=== PATIENT | male | born 1955 | race Caucasian/White ===

== ENCOUNTER → 2017-10-13 | Outpatient (CLI) | payer OTHER ==
--- NOTE | 2017-10-13 12:00 | RADIOLOGY REPORT (SQ) ---
EXAM DESCRIPTION: KNEE RIGHT 4 VIEWS COMPLETED DATE/TIME: 10/13/2017 11:34 am REASON FOR STUDY: R KNEE MASS COMPARISON: None. NUMBER OF VIEWS: Four views. TECHNIQUE: AP, lateral, and both oblique radiographic images acquired of the right knee. LIMITATIONS: None. FINDINGS: MINERALIZATION: Normal. BONES: No acute fracture or dislocation. No worrisome bone lesions. JOINT: Trace suprapatellar knee joint effusion. SOFT TISSUES: Focal soft tissue swelling just ventral to the anterior tibial tubercle along the dista l aspect of patellar tendon. No radio-opaque foreign body. OTHER: No other significant finding. IMPRESSION: Trace joint effusion Focal soft tissue swelling along the anterior right knee, along the distal patellar tendon near the a nterior tibial tubercle. No radiopaque foreign body. No soft tissue gas. TECHNICAL DOCUMENTATION: JOB ID: [id number] [employer]- All Rights Reserved
== END ==
LOC: RAD 10:54
PROVIDERS: ATTEND Family Medicine
DX: M25.40 Effusion, unspecified joint (principal)

== ENCOUNTER 2017-11-24 23:41 | Emergency (ER) | payer OTHER ==
[2017-11-25] MEDS ORDERED: METOPROLOL TARTRATE 25 MG TABLET PO ONE (00:39)
[2017-11-25] MEDS ORDERED: HYDROCHLOROTHIAZIDE 25 MG TABLET PO ONE (00:40)
[2017-11-25] MEDS ORDERED: CYANOCOBALAMIN (VITAMIN B-12) 1,000 MCG TABLET PO SCH ×2 (00:45→22:00)
[2017-11-25] MEDS ORDERED: CARBIDOPA/LEVODOPA ER 50-200 MG TABLET.SA PO SCH ×2 (00:45→18:00)
--- NOTE | 2017-11-25 00:51 | ER Document Report ---
ED General - General TRAVEL OUTSIDE OF THE [place] IN LAST 30 DAYS: No <JULISSA GERBER - Last Filed: 11/25/17 05:59> <JET JENNINGS - Last Filed: 11/26/17 14:03> <KAYLA CARVER - Last Filed: 11/26/17 14:35> - General Chief Complaint: Psych Problem Stated Complaint: PSYCH EVAL Time Seen by Provider: 11/25/17 00:22 Notes: Patient is a 62-year-old male presents with complaint of suicidal ideations. Patient currently says is not suicidal; however, patient has a history of Parkinson's disease, did take his medications today, had a gun in his lap and texted to a friend "my gun is in my lap and the pain will end soon". Police were called and went to his house. Patient says was told that she had to come to the ER. When he arrived the police that he was voluntary. Patient tells me that he wants to leave and that he is not suicidal. I informed him that he needs to be evaluated by psychiatry before leaving based on the text that he sent. Informed patient that if he is not willing to stay that he will be involuntarily committed. Patient agrees to stay and speak with psychiatry. Patient does admit to not taking his medications. He does not remember the exact dosages of his medications. He says medications have not changed in the last year. We do have occasional list from his last visit he does recognize names of medications. Denies recent fevers or infections. He has no other complaints at this time. (JULISSA GERBER) - Related Data Allergies/Adverse Reactions: No Known Allergies Allergy (Verified 09/24/16 16:16) Past Medical History - Social History Smoking Status: Current Every Day Smoker Frequency of alcohol use: None Drug Abuse: None Family History: Reviewed & Not Pertinent, CAD, Malignancy - Past Medical History Cardiac Medical History: Reports: Hx Hypertension Denies: Hx Congestive Heart Failure, Hx DVT, Hx Heart Attack, Hx Hypercholesterolemia, Hx Pulmonary Embolism Pulmonary Medical History: Reports: Hx Pneumonia Denies: Hx Asthma, Hx Bronchitis, Hx COPD, Hx Tuberculosis Neurological Medical History: Denies: Hx Seizures Endocrine Medical History: Denies: Hx Diabetes Mellitus Type 1, Hx Diabetes Mellitus Type 2, Hx Hyperthyroidism, Hx Hypothyroidism Renal/ Medical History: Denies: Hx Benign Prostatic Hyperplasia, Hx End Stage Renal Disease, Hx Kidney Stones GI Medical History: Denies: Hx Cirrhosis, Hx Gastroesophageal Reflux Disease, Hx Hepatitis, Hx Ulcer Musculoskeltal Medical History: Reports Hx Arthritis, Denies Hx Multiple Sclerosis Psychiatric Medical History: Denies: Hx Bipolar Disorder, Hx Depression, Hx Schizophrenia Infectious Medical History: Denies: Hx Hepatitis - Immunizations Hx Diphtheria, Pertussis, Tetanus Vaccination: Yes <JULISSA GERBER - Last Filed: 11/25/17 05:59> Review of Systems <JULISSA GERBER - Last Filed: 11/25/17 05:59> <JET JENNINGS - Last Filed: 11/26/17 14:03> <KAYLA CARVER - Last Filed: 11/26/17 14:35> - Review of Systems Notes: My Normal Review Basic REVIEW OF SYSTEMS: CONSTITUTIONAL : Denies fever, chills, or sweats. Denies recent illness. EENT: Denies eye, ear, throat, or mouth pain or symptoms. Denies nasal or sinus congestion. RESPIRATORY: Denies cough, cold, or chest congestion. Denies shortness of breath, difficulty breathing, or wheezing. GASTROINTESTINAL: Denies abdominal pain. Denies nausea, vomiting, or diarrhea. Denies constipation. Last BM: MUSCULOSKELETAL: Denies neck or back pain or joint pain or swelling. SKIN: Denies rash or skin lesions. NEUROLOGICAL: Denies altered mental status or loss of consciousness. Denies headache. Denies weakness or paralysis or loss of use of either side. Denies problems with gait or speech. Denies sensory or motor loss. Psychiatry: Depression. Made a suicidal threat. ALL OTHER SYSTEMS REVIEWED AND NEGATIVE. (JULISSA GERBER) Physical Exam <JULISSA GERBER - Last Filed: 11/25/17 05:59> <JET JENNINGS - Last Filed: 11/26/17 14:03> <KAYLA CARVER - Last Filed: 11/26/17 14:35> - Vital signs Vitals: Temp Pulse Resp BP Pulse Ox 98.1 F 94 20 170/100 H 94 11/24/17 23:42 11/24/17 23:42 11/24/17 23:42 11/24/17 23:42 11/24/17 23:42 - Notes Notes: General Appearance: Well nourished, alert, cooperative, no acute distress, no obvious discomfort. Vitals: reviewed, See vital signs table. Head: no swelling or tenderness to the head Eyes: PERRL, EOMI, Conjuctiva clear Mouth: No decreasd moisture Lungs: No wheezing, No rales, No rhonci, No accessory muscle use, good air exchange bilaterally. Heart: Normal rate, Regular rythm, No murmur, no rub Abdomen: Normal BS, soft, No rigidity, No abdominal tenderness, No guarding, no rebound, no abdominal masses, no organomegaly Extremities: strength 5/5 in all extremities, good pulses in all extremities, no swelling or tenderness in the extremities, no edema. Skin: warm, dry, appropriate color, no rash Neuro: speech clear, oriented x 3, normal affect, responds appropriately to questions. Has a resting tremor consistent with his Parkinson's disease. ( JULISSA GERBER) Course - Laboratory Result Diagrams: 11/25/17 00:55 11/25/17 00:55 <JULISSA GERBER - Last Filed: 11/25/17 05:59> - Laboratory Result Diagrams: 11/25/17 00:55 11/25/17 00:55 <JET JENNINGS - Last Filed: 11/26/17 14:03> - Laboratory Result Diagrams: 11/25/17 00:55 11/25/17 00:55 <KAYLA CARVER - Last Filed: 11/26/17 14:35> - Re-evaluation Re-evalutation: 11/25/17 05:59 Patient is medically stable for psychiatric evaluation. Currently denies any further suicidal thoughts. I informed him that still based on the history of him having a gun in his hand and texting when he did to his friend I felt that it is appropriate understand speak with psychiatry. Patient is agreeable to staying in speaking with psychiatry. Patient has been cooperative the rest of the night. Dictation of this chart was performed using voice recognition software; therefore, there may be some unintended grammatical errors. (JULISSA GERBER) - Vital Signs Vital signs: Temp Pulse Resp BP Pulse Ox 98.7 F 72 17 138/95 H 96 11/26/17 07:04 11/26/17 07:04 11/26/17 07:04 11/26/17 07:04 11/26/17 07:04 - Laboratory Laboratory results interpreted by me: 11/25/17 11/25/17 11/25/17 00:46 00:55 00:55 RBC 3.69 L MCV 110 H MCH 37.7 H RDW 14.3 H Basophils % 2.3 H Total Bilirubin < 0.1 L Ur Leukocyte Esterase TRACE H Salicylates < 1.0 L Acetaminophen < 10 L Discharge <JULISSA GERBER - Last Filed: 11/25/17 05:59> <JET JENNINGS - Last Filed: 11/26/17 14:03> <KAYLA CARVER - Last Filed: 11/26/17 14:35> - Discharge Clinical Impression: Alcohol abuse, Parkinson disease, Depressive disorder Condition: Stable Disposition: HOME, SELF-CARE Additional Instructions: Acute Alcohol Intoxication Your evaluation revealed very high levels of alcohol. You can from drinking a large amount of alcohol rapidly! Further, there's the risk of falls , traffic accidents, and fights. A high portion (about 50 percent) of the serious injuries seen in hospital emergency rooms are caused by alcohol. Alcohol overdosage is usually due to an underlying emotional or psychiatric problem. You may benefit from counselling. If "binge" drinking is an ongoing problem for you, or if you drink ANY AMOUNT of alcohol EVERY day, you most likely have a tendency to alcoholism. You should avoid alcohol totally. DEPRESSION: Your evaluation reveals that you have mental depression. While symptoms may be vague, they often include disturbance of sleep, fatigue, loss of appetite , and general loss of interest in life. While depression may be a side effect of drugs, or a reaction to a major change in your life, many cases have no known cause. If depression is acute, and related to a major loss in your life, you can expect it to clear completely with time. If you have been depressed a long time , are prone to repeated bouts of depression or low mood, or have been thinking of suicide, get help. Depression can be treated with anti-depressant medication and counselling. Long-term depression will often take a few weeks to clear, even with appropriate medication. Follow-up care is important. SUICIDAL IDEATION: Suicidal ideation is a common medical term for thoughts about suicide, which may be as detailed as a formulated plan, without the suicidal act itself. Although most people who undergo suicidal ideation do not commit suicide, some go on to make suicide attempts. The range of suicidal ideation varies greatly from fleeting to detailed planning, role playing, and unsuccessful attempts. While thoughts about suicide are common, most people do not carry out serious actions to commit suicide. Based upon your evaluation and discussion with you, we do not believe you are currently at risk to act upon your thoughts of suicide. You have agreed to return to the Emergency Department, at any time , if you feel inclined to act upon your suicidal thoughts. FOLLOW-UP CARE: Your recommended to follow-up with outpatient mental health services through the local [place], please contact them in 3-5 days for an appointment. Is also recommended you take your medications as prescribed. If you have difficult remembering to take your medications, pill dispensers and setting alerts can help remind you. If you experience worsening or a significant change in your symptoms, notify the physician immediately or return to the Emergency Department at any time for re-evaluation. Referrals: [facility] [Provider Group] - Follow up in 3-5 days
[2017-11-25 01:15] LABS: ABSOLUTE BASOPHILS # (AUTO) 0.1 10^3/uL (0.0-0.2); ABSOLUTE EOSINOPHILS # (AUTO) 0.1 10^3/uL (0.0-0.6); ABSOLUTE LYMPHOCYTES (AUTO) 1.8 10^3/uL (0.5-4.7); ABSOLUTE MONOCYTES (AUTO) 0.6 10^3/uL (0.1-1.4); ABSOLUTE NEUT (AUTO) 2.3 10^3/uL (1.7-8.2); BASOPHILS % (AUTO) 2.3 % (0-2); EOSINOPHILS % (AUTO) 1.4 % (0-6); HEMATOCRIT 40.6 % (37.9-51.0); HEMOGLOBIN 13.9 g/dL (13.5-17.0); LYMPHOCYTES % (AUTO) 37.1 % (13-45); MEAN CORPUSCULAR HEMOGLOBIN 37.7 pg (27.0-33.4); MEAN CORPUSCULAR HGB CONC 34.3 g/dL (32.0-36.0); MEAN CORPUSCULAR VOLUME 110 fl (80-97); MONOCYTES % (AUTO) 12.9 % (3-13); PLATELET COUNT 301 10^3/uL (150-450); RED BLOOD COUNT 3.69 10^6/uL (4.35-5.55); RED CELL DISTRIBUTION WIDTH 14.3 % (11.5-14.0); SEGMENTED NEUTROPHILS % (AUTO) 46.3 % (42-78); TOTAL CELLS COUNTED % (AUTO) 100 %; WHITE BLOOD COUNT 4.9 10^3/uL (4.0-10.5)
[2017-11-25 01:25] LABS: ALANINE AMINOTRANSFERASE 29 U/L (21-72); ALBUMIN 4.5 g/dL (3.5-5.0); ALCOHOL 279 mg/dL (NONE DETECTED); ALKALINE PHOSPHATASE 59 U/L (38-126); ANION GAP 15 (5-19); ASPARTATE AMINO TRANSFERASE 36 U/L (17-59); BLOOD UREA NITROGEN 8 mg/dL (7-20); CALCIUM 9.2 mg/dL (8.4-10.2); CARBON DIOXIDE 25 mmol/L (22-30); CHLORIDE 105 mmol/L (98-107); GLUCOSE 100 mg/dL (75-110); SODIUM 144.6 mmol/L (137-145); TOTAL PROTEIN 7.2 g/dL (6.3-8.2)
[2017-11-25 01:29] LABS: ACETAMINOPHEN < 10 ug/mL (10-30); BILIRUBIN,TOTAL < 0.1 mg/dL (0.2-1.3); SALICYLATE < 1.0 mg/dL (2.0-20.0)
[2017-11-25 02:05] LABS: APPEARANCE,URINE SLIGHTLY-CLOUDY; BILIRUBIN,URINE NEGATIVE (NEGATIVE); COLOR,URINE YELLOW; GLUCOSE, URINE NEGATIVE (NEGATIVE); KETONES,URINE NEGATIVE (NEGATIVE); LEUKOCYTE ESTERASE,URINE TRACE (NEGATIVE); NITRITE,URINE NEGATIVE (NEGATIVE); PROTEIN,URINE NEGATIVE (NEGATIVE); URINE SPECIFIC GRAVITY 1.015; UROBILINOGEN,URINE NEGATIVE mg/dL (<2.0)
[2017-11-25 02:10] LABS: URINE AMPHETAMINES SCREEN NEGATIVE; URINE BARBITURATES SCREEN NEGATIVE; URINE BENZODIAZEPINES SCREEN NEGATIVE; URINE COCAINE SCREEN NEGATIVE; URINE MARIJUANA (THC) SCREEN NEGATIVE; URINE METHADONE SCREEN NEGATIVE; URINE PHENCYCLIDINE SCREEN NEGATIVE
[2017-11-25] MEDS ORDERED: CYANOCOBALAMIN (VITAMIN B-12) 1,000 MCG TABLET ONE (02:13)
[2017-11-25] MEDS ORDERED: CARBIDOPA/LEVODOPA ER 50-200 MG TABLET.SA PO ONE ×2 (02:14→02:30)
[2017-11-25] MEDS ORDERED: CYANOCOBALAMIN (VITAMIN B-12) 1,000 MCG TABLET PO ONE (02:30)
--- NOTE | 2017-11-25 08:41 | ER Document Report ---
Doctor's Note Notes: 11/25/17 08:40 As the rounding physician for our psychiatric patients, I have reviewed the chart, vitals, lab work. Patient has been examined and noted to be stable at this time. I am awaiting mental health in put. Patient is adamant that he be discharged denies any suicidal ideations at this time
--- NOTE | 2017-11-25 14:00 | EKG REPORT ---
SEVERITY:- ABNORMAL ECG - SINUS RHYTHM : Confirmed by: Moise Saxena 25-Nov-2017 13:59:22
--- NOTE | 2017-11-25 15:36 | PSYCHOLOGICAL NOTE ---
Psych Note - Psych Note Psych Note: Reason for consult: suicidal ideation Consent Permissions: Nilesh Juarez, Patient is a 62-year-old male presents with complaint of suicidal ideations. Patient currently says is not suicidal; however, patient has a history of Parkinson's disease, did take his medications today, had a gun in his lap and texted to a friend "my gun is in my lap and the pain will end soon". Police were called and went to his house. Patient says was told that he had to come to the ER. When he arrived the police that he was voluntary. Patient tells me that he wants to leave and that he is not suicidal. Patient does admit to not taking his medications. Patient disclosed that he has Parkinson's disease which causes memory loss. He disclosed that he was told that he text his senior cognos developer saying that he was going to shoot himself but states "I do not remember that." He reports that he has spiritism convictions against suicide and denies ever having thoughts of suicide and "except for the text I would never thought I ever did." Patient continues state that was having a bad day everything blends together, patient recalls seeing the senior cognos developer and police and remembering the handgun being unloaded by the police. Patient states "but I reloaded it after they left... Makes no sense to have it if it is not prepared." The patient continued to state that he does remember the gun being "out of the pouch" but he states that he remembers thinking he was going to clean it; "to get out very often so needed to be cleaned." He confirms that his senior cognos developer now has both of his guns. He denies having any consistent mental health treatment stating "a look at it as an as-needed basis... About a year ago I went for 6 months weekly. He has not had any follow-up since then." He denies receiving any psychiatric medications in the past however has taken antidepressants for migraines but has not needed taking any migraine medication since he has been diagnosed with Parkinson's. Patient lives alone, has a sister and niece in town in addition to "jehovah's witness friends" that he sees frequently. Patient's senior cognos developer, nilesh, disclosed that the patient in him text often and last night after a few text messages back and forth the patient stated "thanks, my gun is in my lap and the pain will soon be over." He disclosed that he immediately called the patient;however, there was no answer so he called 911. While he was driving to the patient's home he attempted to contact the patient multiple times with no success. When he arrived to the patient's home he could see the patient sitting on his couch through the window "looking at his phone." He reports he arrived at the same time as long enforcement and he heard the police state that they saw the gun on the patient's lab not his hands and when he got up to answer the door they again said he was on armed. The patient told Nilesh that he had no memory of sending the text messages last night and again stated again he had no memory this morning. Patient disclosed that he got his gun out last night because he "wanted to look at it but today he says he got it out because he wanted to clean it." Patient does have a history of difficulty with his memory; "it is a little convenient he has no memory but it is conceivable... But still convenient." He reports that approximately 1 year ago he did request for the patient to turn over his weapons to him for a few days because he was concerned of the state of mind the patient was then. At that time the patient was not taking his medications and was having difficulty remembering people. 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 He reports the patient's son also lives in town and he has disclosed that the patient does have a history of suicidal ideation with significant alcoholism. He is concerned the patient is unable to truly live alone and care for himself; "he forgot who I was 6 times and visibly became frightened thinking I was a stranger in his home... in just one afternoon visit with him." Patient is alert and orientated to person place time and circumstance. Mood is euthymic with congruent affect. Patient denies suicidal ideation denies having any memory of text to his senior cognos developer and has provided 2 different stories on why his gun was out. Patient denies homicidal ideation. Delusions are absent and behaviors congruent with intact reality based presentation i.e. organized, linear, rational thinking. Eye contact was fair. Intellectual abilities appear to be within the average range. Conversational speech was slightly halting this is congruent with patient's diagnosis of Parkinson's. Attention and concentration was fair however very centered on wanting to leave. Insight, judgment, impulse control is currently poor/impaired. 332.0 (G20) Parkinson disease R/O 294.10 (F02.80) major cognitive disorder probably due to Parkinson's disease , without behavioral disturbance 311 (F32.9) unspecified depressive disorder 291.9 (F10.99) unspecified alcohol related disorder Impression\\plan: Patient is recommended for IVC. Patient disclosed suicidal ideation to his senior cognos developer with plans means. Patient now denies any memory and has provided multiple reasons on why his weapon was out. There is concern for the patient's memory and ability to live at home alone. There is also concern the patient is not taking his medication for his Parkinson's disease. Patient reportedly has a history of alcoholism and was intoxicated when he came into [facility] ED her toxicology screening. Patient will be reevaluated. Dr. Merino was consulted and the care management of this patient; attending physician is in agreement with recommendations and disposition.
[2017-11-25] MEDS: VENLAFAXINE HCL 37.5 MG CAP.SR.24H PO SCH (18:48)
[2017-11-25] MEDS ORDERED: TRIHEXYPHENIDYL HCL 2 MG TABLET PO ONE (19:00)
[2017-11-25] MEDS ORDERED: ONDANSETRON 4 MG TAB.RAPDIS PO ONE (21:06)
[2017-11-25] MEDS: METOPROLOL TARTRATE 50 MG TABLET PO SCH (22:04)
[2017-11-26 07:09] VITALS: BP 138/95
[2017-11-26] MEDS: VENLAFAXINE HCL 37.5 MG CAP.SR.24H PO SCH (09:36)
[2017-11-26] MEDS: METOPROLOL TARTRATE 50 MG TABLET PO SCH (09:40)
[2017-11-26] MEDS ORDERED: METOPROLOL TARTRATE 100 MG TABLET PO SCH (10:00)
[2017-11-26] MEDS ORDERED: POTASSIUM CHLORIDE 10 MEQ TABLET.SA PO SCH (10:00)
[2017-11-26] MEDS ORDERED: RASAGILINE MESYLATE 1 MG PO SCH (10:00)
[2017-11-26] MEDS ORDERED: CYANOCOBALAMIN (VITAMIN B-12) 1,000 MCG TABLET PO SCH (10:00)
[2017-11-26] MEDS ORDERED: HYDROCHLOROTHIAZIDE 25 MG TABLET PO SCH (10:00)
[2017-11-26] MEDS ORDERED: TRIHEXYPHENIDYL HCL 2 MG TABLET PO SCH (10:00)
--- NOTE | 2017-11-26 10:30 | ER Document Report ---
Doctor's Note Notes: 11/26/17 10:29 Rounds: Chart reviewed and patient interviewed. Patient seems to be in good spirits. Very talkative and sounds positive. Admits that he was drinking heavily last evening. In his chart, it is reported that he had a gun in his lab and was indicating he was going to kill himself last night. Blood alcohol was 279 when he was admitted. Patient said he took up drinking alcohol to stop his migraine headaches in the past. Now he no longer has migraine headaches, but continues to drink alcohol. Suffers from depression. Has bad Parkinson's disease. Has to walk with a cane. All other lab studies were essentially unremarkable. Vital signs are all normal. Patient appears to be medically stable for transfer or discharge. Awa Pereyra MD
--- NOTE | 2017-11-27 08:40 | PSYCHOLOGICAL NOTE ---
Psych Note - Psych Note Psych Note: Reason for consult: suicidal ideation Consent Permissions: Nilesh Juarez, Patient is a 62-year-old male presents with complaint of suicidal ideations. Patient currently says is not suicidal; however, patient has a history of Parkinson's disease, did take his medications today, had a gun in his lap and texted to a friend "my gun is in my lap and the pain will end soon". Police were called and went to his house. Patient says was told that he had to come to the ER. When he arrived the police that he was voluntary. Patient tells me that he wants to leave and that he is not suicidal. Patient does admit to not taking his medications. Conducted a check in with patient He disclosed it "is very rare and far between" when he drinks. He reports that he use to be be a heavy drinker because of his migraines but when they stopped 2 years ago he "didn't need to drink." He continued to state that he normally would only have a drink when he was with someone. When asked if he normally drinks with someone and not alone, what caused him to drink alone the other evening, the patient responded "I don't know...it was cold...I was by myself...I knew I didn't have to do anything." Clinician spoke with john paul Galloway's seo professional. He disclosed the religious community will set up a schedule of volunteers to visit with the patient and assist with taking his medications. They have also started talking about purchasing an automatic medication dispenser. He reports the patient's presentation has improved and current appears baseline to when he is taking his Parkinson's medication today. He agrees to encourage the patient for sobriety and states he now knows the patient's signs of when under the influence; "it was always easy to just assume the slurring and stumbling was because of the Parkinson's." Patient is alert and orientated to person place time and circumstance. Mood is euthymic with congruent affect. Patient denies suicidal ideation denies having any memory of text to his seo professional; he was under the influence at the time. Patient denies homicidal ideation. Delusions are absent and behaviors congruent with intact reality based presentation i.e. organized, linear, rational thinking. Eye contact was good. Intellectual abilities appear to be within the average range. Conversational speech was slightly halting this is congruent with patient's diagnosis of Parkinson's (there is noted improvement in his speech pattern from yesterday). Attention and concentration was good. Insight, judgment, impulse control is fair. 332.0 (G20) Parkinson disease R/O 294.10 (F02.80) major cognitive disorder probably due to Parkinson's disease , without behavioral disturbance 311 (F32.9) unspecified depressive disorder 291.9 (F10.99) unspecified alcohol related disorder Impression\\plan: Patient is recommended for rescind of IVC and is considered psychiatrically cleared. Patient no longer meets IVC criteria per [place] GS 122C. Patient was under the influence at the time and now denies suicidal ideation. The patient no longer has access to any weapons (the are in the possession of the patient's seo professional). There is concern for the patient's memory and ability to live at home alone, his religious community is organizing volunteers to make daily visits to the patient and assist with medications. An APS report will be submitted to assist with referral assistance for the patient. Patient reportedly has a history of alcoholism and was intoxicated when he came into [facility] ED her toxicology screening; his paster states he will be encouraging the patient to achieve and sustain sobriety. Dr. Merino was consulted and the care management of this patient; attending physician is in agreement with recommendations and disposition.
== END 2017-11-26 14:51 | disposition home or self-care (01) ==
LOC: ER 23:41
DX: F32.9 Major depressive disorder, single episode, unspecified (principal); F10.10 Alcohol abuse, uncomplicated; G20 Parkinson's disease; F17.200 Nicotine dependence, unspecified, uncomplicated
CPT/HCPCS: 99285; 36415; 80307 ×4; 85025; 80053; 81001; J3490 ×2; S0119

== ENCOUNTER 2018-02-24 10:24 | Day surgery (SDC) | payer OTHER ==
[~2018-02-24 10:24] MED LIST: CHONDR SU A NA/HYALUR INTRAOC KIT (SURGICARE) ONE; EPINEPHRINE INJ/PF 1 MG/1 ML AMPULE ONE; KETOROLAC TROMETHAMINE 0.45% 4 DROP/0.4 ML DROPERETTE OS PRN; LIDOCAINE 1% INJ-PF (10 MG/ML) 30 ML SDV ONE
[2018-02-24] MEDS: TROPICAMIDE 1% OPH SOLN 3 ML OS PRN ×3 (10:49→11:22)
[2018-02-24] MEDS: CYCLOPENTOLATE 0.2%/PHENYLEPHRINE 1% OPH SOLN 2 ML OS PRN ×3 (10:49→11:22)
[2018-02-24] MEDS: BESIFLOXACIN HCL 0.6% OPH SUSP 5 ML BOTTLE OS PRN ×3 (10:50→11:48)
[2018-02-24] MEDS: TETRACAINE HCL 0.5% OPH SOLN 2 ML OS PRN ×3 (10:51→11:29)
[2018-02-24] MEDS ORDERED: MIDAZOLAM 2 MG/2 ML INJ ONE ×2 (11:10)
[2018-02-24] MEDS ORDERED: FENTANYL CITRATE INJ/PF 100 MCG/2 ML AMPUL ONE (11:10)
--- NOTE | 2018-02-24 19:29 | [facility] OPERATIVE REPORT E ---
[facility] Operative Report NAME: TONE PINEDA AGE: 62Y DATE OF SURGERY: 02/24/2018 PREOPERATIVE DIAGNOSIS: CATARACT, LEFT EYE. POSTOPERATIVE DIAGNOSIS: CATARACT, LEFT EYE. OPERATION: Cataract extraction with ReSTOR intraocular lens implant of the left eye. SURGEON: DAILY IRVING M.D. ANESTHESIA: Topical. PROCEDURE: After obtaining appropriate consent, the patient's left eye was prepped and draped in sterile fashion as well as the surgeon in a sterile manner and cataract surgery was started. First a paracentesis blade was used to make a small side-port incision. Viscoelastic was used to inflate the anterior chamber. Next a 2.4 mm incision was made with the paracentesis blade. A continuous capsulorrhexis incision was made using a cystotome and Utrata forceps. Following this hydrodissection was carried out to make the lens fully loose and mobile and it was rotated 90 degrees. Following this, a [id number]-[id number] technique was used to phacoemulsify the lens with a CDE of 11.69. The remaining cortex was removed with irrigation/aspiration. Provisc was instilled into the capsular bag to inflate the bag. A SN6AD1, 20.5 diopter lens was placed. The remaining viscoelastic material was removed with irrigation/aspiration. Following this, a 10-0 nylon suture was used to close the incision and it was found to be watertight. Vigamox was instilled in the eye and a protective shield was placed over the eye. The patient returned to the postoperative recovery in stable condition. DICTATING PHYSICIAN: DAILY IRVING M.D. [id number] PHY#: [id number] ID: [id number] JOB#: [id number] ACCT: [id number] cc:DAILY IRVING M.D. >
--- NOTE | 2018-02-24 19:29 | [facility] DISCHARGE SUMMARY E ---
[facility] Discharge Summary NAME: TONE PINEDA AGE: 62Y ADMITTED: 02/24/2018 DISCHARGED: 02/24/2018 FINAL DIAGNOSIS: CATARACT, LEFT EYE. HISTORY/CLINIC COURSE: This is a 62-year-old patient who underwent cataract extraction of the left eye with insertion of a ReSTOR IOL without complication, woke up in postoperative recovery in stable condition. The patient underwent surgery because she was having difficulty reading road signs and increased glare with nighttime driving. Patient is to be on a regular diet. No bending at the waist, no heavy lifting. Patient should use the Besivance, Ilevro, and Durezol at 3 p.m. and 8 p.m., and sleep with a rigid shield. I will see her for 1 day postoperative tomorrow. DICTATING PHYSICIAN: DAILY IRVING M.D. [id number] PHY#: [id number] ID: [id number] JOB#: [id number] ACCT: [id number] cc:DAILY IRVING M.D. >
== END 2018-02-24 12:24 | disposition home or self-care (01) ==
LOC: SC 10:24
PROVIDERS: ATTEND Internal Medicine
PROC: 08RJ3JZ Replacement of Right Lens with Synthetic Substitute, Percutaneous Approach (ICD-10-PCS; principal; 2018-02-24 12:00)
DX: H25.13 Age-related nuclear cataract, bilateral (principal); H43.813 Vitreous degeneration, bilateral; G20 Parkinson's disease; F10.10 Alcohol abuse, uncomplicated; I10 Essential (primary) hypertension; F17.210 Nicotine dependence, cigarettes, uncomplicated; Z79.82 Long term (current) use of aspirin; Z79.899 Other long term (current) drug therapy
CPT/HCPCS: 66984; V2788; J2250; J3490 ×2; J0171; J3010; 142

== ENCOUNTER 2018-03-17 07:58 | Day surgery (SDC) | payer OTHER ==
[~2018-03-17 07:58] MED LIST changes: +KETOROLAC TROMETHAMINE 0.45% 4 DROP/0.4 ML DROPERETTE OD PRN; -KETOROLAC TROMETHAMINE 0.45% 4 DROP/0.4 ML DROPERETTE OS PRN
[2018-03-17] MEDS: BESIFLOXACIN HCL 0.6% OPH SUSP 5 ML BOTTLE OD PRN ×3 (08:29→09:22)
[2018-03-17] MEDS: TETRACAINE HCL 0.5% OPH SOLN 2 ML OD PRN ×3 (08:29→09:02)
[2018-03-17] MEDS: TROPICAMIDE 1% OPH SOLN 3 ML OD PRN ×3 (08:29→08:47)
[2018-03-17] MEDS: CYCLOPENTOLATE 0.2%/PHENYLEPHRINE 1% OPH SOLN 2 ML OD PRN ×3 (08:29→08:47)
[2018-03-17] MEDS ORDERED: FENTANYL CITRATE INJ/PF 100 MCG/2 ML AMPUL ONE (08:48)
[2018-03-17] MEDS ORDERED: MIDAZOLAM 2 MG/2 ML INJ ONE (08:48)
[2018-03-17] MEDS ORDERED: ONDANSETRON HCL INJ/PF 4 MG/2 ML SDV ONE (08:48)
--- NOTE | 2018-03-17 15:09 | [facility] OPERATIVE REPORT E ---
[facility] Operative Report NAME: TONE PINEDA AGE: 62Y DATE OF SURGERY: 03/17/2018 ROOM: PREOPERATIVE DIAGNOSIS: CATARACT, RIGHT EYE. POSTOPERATIVE DIAGNOSIS: CATARACT, RIGHT EYE. OPERATION: Cataract extraction with ReSTOR intraocular lens implant of the right eye. SURGEON: DAILY IRVING M.D. ANESTHESIA: Topical. PROCEDURE: After obtaining appropriate consent, the patient's right eye was prepped and draped in sterile fashion as well as the surgeon in a sterile manner and cataract surgery was started. First a paracentesis blade was used to make a small side-port incision. Viscoelastic was used to inflate the anterior chamber. Next a 2.4 mm incision was made with the paracentesis blade. A continuous capsulorrhexis incision was made using a cystotome and Utrata forceps. Following this hydrodissection was carried out to make the lens fully loose and mobile and it was rotated 90 degrees. Following this, a mujtnu-wow-seupxmh technique was used to phacoemulsify the lens with a CDE of 7.03. The remaining cortex was removed with irrigation/aspiration. Provisc was instilled into the capsular bag to inflate the bag. A SN6AD1, 20.5 diopter lens was placed. The remaining viscoelastic material was removed with irrigation/aspiration. Following this, a 10-0 nylon suture was used to close the incision and it was found to be watertight. Vigamox was instilled in the eye and a protective shield was placed over the eye. The patient returned to the postoperative recovery in stable condition. DICTATING PHYSICIAN: DAILY IRVING M.D. [id number] PHY#: [id number] ID: [id number] JOB#: [id number] ACCT: [id number] cc:DAILY IRVING M.D. >
--- NOTE | 2018-03-17 15:14 | [facility] DISCHARGE SUMMARY E ---
[facility] Discharge Summary NAME: TONE PINEDA AGE: 62Y ADMITTED: 03/17/2018 DISCHARGED: 03/17/2018 DIAGNOSIS: CATARACT, RIGHT EYE. SUMMARY: This is a 62-year-old patient who underwent cataract extraction with insertion of a ReSTOR IOL in the right eye. He underwent surgery because he was having difficulty driving at night secondary to glare from headlights. DISCHARGE INSTRUCTIONS: Patient is to be on a regular diet, no bending at his waist, and no heavy lifting. Patient should use Besivance, Ilevro and Durezol at 3 p.m. and 8 p.m. and sleep with a rigid shield. I will see him for a 1-day postoperative tomorrow. DICTATING PHYSICIAN: DAILY IRVING M.D. 1209M [id number] PHY#: [id number] ID: [id number] JOB#: [id number] ACCT: [id number] cc:DAILY IRVING M.D. >
== END 2018-03-17 10:10 | disposition home or self-care (01) ==
LOC: SC 07:58
PROVIDERS: ATTEND Internal Medicine
DX: H25.11 Age-related nuclear cataract, right eye (principal); Z96.1 Presence of intraocular lens
CPT/HCPCS: 66984; V2788; J2250; J3490 ×2; J0171; J3010; J2405; 142

== ENCOUNTER → 2018-06-18 | Outpatient (CLI) | payer OTHER ==
--- NOTE | 2018-06-18 09:02 | RADIOLOGY REPORT (SQ) ---
EXAM DESCRIPTION: CT HEAD WITHOUT COMPLETED DATE/TIME: 06/18/2018 8:52 am REASON FOR STUDY: FALL, CONFUSION W01.190A FALL SAME LEV FROM SLIP/TRIP W STRIKE AGNST FURNITU COMPARISON: 05/04/2016. TECHNIQUE: Axial images acquired through the brain without intravenous contrast. Images reviewed wi th bone, brain and subdural windows. Images stored on PACS. All CT scanners at this facility use dose modulation, iterative reconstruction, and/or weight based d osing when appropriate to reduce radiation dose to as low as reasonably achievable (ALARA). [facility]: Dose Right [facility]: CareDose [facility]: Dose Right [facility]: Teradose 4D [facility]: [employer] RADIATION DOSE: CT Rad equipment meets quality standard of care and radiation dose reduction techniq ues were employed. CTDIvol: 53.2 mGy. DLP: 937 mGy-cm. mGy. LIMITATIONS: None. FINDINGS: VENTRICLES: Normal size and contour. CEREBRUM: No masses. No hemorrhage. No midline shift. No evidence for acute infarction. Normal gra y/white matter differentiation. No areas of low density in the white matter. CEREBELLUM: No masses. No hemorrhage. No alteration of density. No evidence for acute infarction. EXTRAAXIAL SPACES: No fluid collections. No masses. ORBITS AND GLOBE: No intra- or extraconal masses. Normal contour of globe without masses. CALVARIUM: No fracture. PARANASAL SINUSES: No fluid or mucosal thickening. SOFT TISSUES: No mass or hematoma. OTHER: No other significant finding. IMPRESSION: NORMAL BRAIN CT WITHOUT CONTRAST. EVIDENCE OF ACUTE STROKE: NO. COMMENT: Quality ID # [id number]: Final reports with documentation of one or more dose reduction techniques (e.g., Automated exposure control, adjustment of the mA and/or kV according to patient size, use of iterative reconstruction technique) TECHNICAL DOCUMENTATION: JOB ID: [id number] [employer]- All Rights Reserved Reading location - IP/workstation name: [email or web address]
== END ==
LOC: RAD 08:37
PROVIDERS: ATTEND Family Medicine
DX: R41.0 Disorientation, unspecified (principal); W01.190A Fall on same level from slipping, tripping and stumbling with subsequent striking against furniture, initial encounter
CPT/HCPCS: 70450

== ENCOUNTER 2019-08-02 07:03 | Day surgery (SDC) | payer OTHER ==
[~2019-08-02 07:03] MED LIST changes: -CHONDR SU A NA/HYALUR INTRAOC KIT (SURGICARE) ONE; -EPINEPHRINE INJ/PF 1 MG/1 ML AMPULE ONE; -KETOROLAC TROMETHAMINE 0.45% 4 DROP/0.4 ML DROPERETTE OD PRN; -LIDOCAINE 1% INJ-PF (10 MG/ML) 30 ML SDV ONE; +NORMAL SALINE 1000 ML 1,000 ML IV PRN
[2019-08-02 08:16] LABS: HEMATOCRIT 39.2 % (37.9-51.0); HEMOGLOBIN 13.5 g/dL (13.5-17.0); MEAN CORPUSCULAR HEMOGLOBIN 35.2 pg (27.0-33.4); MEAN CORPUSCULAR HGB CONC 34.3 g/dL (32.0-36.0); MEAN CORPUSCULAR VOLUME 102 fl (80-97); PLATELET COUNT 201 10^3/uL (150-450); RED BLOOD COUNT 3.83 10^6/uL (4.35-5.55); RED CELL DISTRIBUTION WIDTH 13.1 % (11.5-14.0); WHITE BLOOD COUNT 6.9 10^3/uL (4.0-10.5)
[2019-08-02] MEDS ORDERED: LIDOCAINE 1% INJ-PF (10 MG/ML) 30 ML SDV ONE (08:30)
[2019-08-02] MEDS ORDERED: KETOROLAC TROMETHAMINE 60 MG/2 ML SDV ONE (08:37)
[2019-08-02] MEDS ORDERED: DEXAMETHASONE SOD PHOSPHATE INJ 4 MG/1 ML VIAL ONE (08:38)
[2019-08-02] MEDS ORDERED: FENTANYL CITRATE INJ/PF 100 MCG/2 ML AMPUL ONE (08:38)
[2019-08-02] MEDS ORDERED: MIDAZOLAM 2 MG/2 ML INJ ONE (08:38)
[2019-08-02] MEDS ORDERED: PROPOFOL INJ 200 MG/20 ML VIAL IV ONE ×2 (08:38→09:18)
[2019-08-02] MEDS ORDERED: ONDANSETRON HCL INJ/PF 4 MG/2 ML SDV ONE (08:38)
[2019-08-02 08:45] LABS: ANION GAP 6 (5-19); BLOOD UREA NITROGEN 10 mg/dL (7-20); CALCIUM 9.5 mg/dL (8.4-10.2); CARBON DIOXIDE 29 mmol/L (22-30); CHLORIDE 104 mmol/L (98-107); GLUCOSE 96 mg/dL (75-110); POTASSIUM 4.5 mmol/L (3.6-5.0)
[2019-08-02] MEDS ORDERED: MEPERIDINE HCL/PF INJ 25 MG/1 ML DISP.SYRIN IV PRN (08:52)
[2019-08-02] MEDS ORDERED: DIPHENHYDRAMINE HCL 50 MG/ML VIAL IV PRN (08:52)
[2019-08-02] MEDS ORDERED: ONDANSETRON HCL INJ/PF 4 MG/2 ML SDV IV PRN (08:52)
[2019-08-02] MEDS ORDERED: MORPHINE SULFATE 10 MG/ML INJ IV PRN (08:52)
[2019-08-02] MEDS ORDERED: OXYCODONE-ACETAMINOPHEN 5-325 MG TABLET PO PRN ×2 (08:52)
[2019-08-02] MEDS ORDERED: FENTANYL CITRATE INJ/PF 100 MCG/2 ML AMPUL IV PRN ×3 (08:52)
--- NOTE | 2019-08-02 09:23 | EKG REPORT ---
SEVERITY:- NORMAL ECG - SINUS RHYTHM : Confirmed by: Lakshmi Gonsalez MD 02-Aug-2019 09:23:12
[2019-08-02] MEDS ORDERED: CEFAZOLIN 1 GM/D5W RTU 0 GM/0 ML RTUPB IV ONE (09:30)
--- NOTE | 2019-08-02 10:23 | Operative Report ---
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 The patient was then taken the main operating room where LMAC anesthesia was induced. The right leg was isolated, prepped with Betadine, and draped in isolation. Surgical plan surgical timeout were conducted. The palpable 3-1/2 to 4 cm mass below the patella was appreciated. The skin was anesthetized with 1% plain lidocaine. A transverse incision was made francoise roximately 3 and half centimeters in length. We immediately encountered a synovial sheath cyst. It was dissected out in its entirety. There was no violation of the cyst wall. It was excised completely intact and sent to pathology as synovial sheath cyst. The underlying wound was inspected, and the fascia was intact. There was no evidence of communication with the cyst. Small throat bleeding spots were cauterized as encountered. The wound was closed in layers with a 3-0 Vicryl, 3- 0 Ethilon, benzoin Steri-Strips compression dressing with Kerlix and Covan. Patient tolerated procedure well. He was taken to the recovery room in stable condition The physician commercial escrow assistant, Ms. Del Toro, provided assistance during this case by: Assisting with retracting tissue, instillation of local anesthesia and closure of skin incisions.
--- NOTE | 2019-08-02 10:33 | Discharge Summary ---
Discharge Summary (SDC) - Discharge Final Diagnosis: synovial sheath cyst Date of Surgery: 08/02/19 Discharge Date: 08/02/19 Condition: Good Treatment or Instructions: WOUND CARE: 1) Do not shower for 48 hours. At that time, you may remove outer dressings and allow warm water/soap to wash over the wound. Pat the area dry and recover with gauze and an ASHLEY wrap. Wear the ASHLEY wrap compression until your follow up francoise ointment. 2) Monitor the wound for signs of infection: redness, swelling, pain, fever, foul-smelling drainage. Call clinic with any questions/concerns. PAIN MANAGEMENT: 1) You may take Toradol 10mg one pill by mouth every six hours as needed for pain. Do not take additional NSAIDs such as ibuprofen, goodies powder, aleve with the Toradol. You may take Tylenol with the Toradol. FOLLOW UP: 1) You may follow up at [facility] in 7-10 days. Prescriptions: Ketorolac Tromethamine [Toradol 10 mg Tablet] 10 mg PO Q6HP PRN #20 tablet PRN Reason: Referrals: [facility] [[facility]] - Discharge Diet: As Tolerated Discharge Activity: Activity As Tolerated, Walk Frequently Report the Following to Your Physician Immediately: Fever over 101 Degrees, Unusual Bleeding, Redness, Swelling, Warmth, Drainage-Foul Smelling
[2019-08-02 12:27] VITALS: BP 137/80
== END 2019-08-02 12:00 | disposition home or self-care (01) ==
LOC: OROUT 07:03
PROVIDERS: ATTEND Surgery
DX: M71.38 Other bursal cyst, other site (principal); G20 Parkinson's disease; I10 Essential (primary) hypertension; R35.1 Nocturia; G56.00 Carpal tunnel syndrome, unspecified upper limb; F17.290 Nicotine dependence, other tobacco product, uncomplicated; F17.210 Nicotine dependence, cigarettes, uncomplicated
CPT/HCPCS: 36415; 85027; 80048; 88304 ×2; 93005; 93010; 00400; 27599; J2250; J1885; J3010; J3490; J2405; J2704; 400; J0690; J1100